=== PATIENT | female | born 1990 | race Caucasian/White ===

== ENCOUNTER 2016-08-27 05:39 | Emergency (ER) | payer MEDICAID ==
[2016-08-27] MEDS ORDERED: Sodium Chloride 0.9% 1,000 ML IV ONE (05:56)
[2016-08-27] MEDS ORDERED: Ondansetron 4 MG/2 ML SDV IVPUSH ONE (05:56)
[2016-08-27] MEDS ORDERED: HYDROmorphone 2 MG/ML SDV IVPUSH ONE (05:57)
[2016-08-27] MEDS ORDERED: Sodium Chloride 0.9% 10 ML Syringe FLUSH PRN (06:13)
[2016-08-27] MEDS ORDERED: Ranitidine 15 MG/ML Syrup ML (473 ML Bottle) PO ONE (08:13)
[2016-08-27 08:29] VITALS: BP 118/73
--- NOTE | 2016-08-29 11:26 | ER ---
DATE SEEN: 08/27/2016 TIME SEEN: The patient was seen at 0638 hours. HISTORY OF PRESENT ILLNESS: The patient states she has vomited 12 times since yesterday, including this morning. She has had difficulty eating. She is approximately 14 weeks' . Last menstrual period approximately May 21, 2016. She denies fever, diarrhea, or hematemesis, or eating fatty foods. She denies problems with her gallbladder. No previous gallbladder surgery. Even drinking water "causes upset stomach". She did not eat yesterday. She worked yesterday. She has now come to the ED after she has finished work. She is quite sleepy. When she talks, she talks very quietly. This is her 7th . See my previous note regarding her pregnancies. I believe there are several fathers involved in multiple pregnancies. No history of autoimmune disease, duodenal ulcer, or Helicobacter pylori. She is not taking any medicine for upset stomach. She is a 7, para 6-0-0-6, one set of twins. On multiple occasions, she was seen by myself on 08/09/2016 and was seen by Dr. Ceja on 08/23/2016 for chest pain and also on 08/07/2016 for chest pain. No chest wall trauma. Diagnosed with periscapular pain on 08/07/2016 and treated with ketorolac IM. History of falls. She is known to have polysubstance abuse, depression, and anxiety. On 08/10/2016, I saw her and documented intercostal myalgia with strain, discomfort from carrying her 21-pound baby. She was advised not to use NSAIDs during , but it is okay to use Tylenol. On 08/09/2016 and also on two prior visits with Dr. Ahuja on 08/07/2016, she did not relate she was . PAST MEDICAL HISTORY: The patient had past medical history of STDs. Other diagnosis, schizophrenia. FAMILY HISTORY: Mother had heart surgery. Another family member had lupus and one had leukemia. SOCIAL HISTORY: The patient is a nonsmoker. On 08/23/2016, the patient did not have chest wall pain. Diagnosed as having atypical chest pain and to use Tylenol as needed for pain and/or capsaicin or turmeric for discomfort. ALLERGIES: None. I asked the patient if she is taking vitamins for , she said "well my doctor knows I am , but he has not given me vitamins. " (This seems quite strange - maybe she has never informed her MD that she is pregant, or she is no compliant). PHYSICAL EXAMINATION: GENERAL: Alert woman, looks very tired. She is soft- spoken. It is very hard to hear her. HEENT: PERRLA intact. Pharynx without abnormality. NECK: She has multiple tattoos on her neck and her body. LUNGS: Clear to auscultation. HEART: S1, S2. No murmur. ABDOMEN: Soft. Enlarged gravid uterus noted. EXTREMITIES: Lower extremities without abnormality. ASSESSMENT: Possible acid peptic disease. Consulted Up-To-Date, and the drug of choice is ranitidine 150 mg b.i.d.during . Omeprazole is noted to cause hypospaydia and that was not chosen. ADDITIONAL COMMENT: Palpation of the patient's chest demonstrates sternal chondritis, left greater than right, quite extensive. She breaks out in tears. I find she is very melodramatic. With her history of drug-seeking, I am reluctant to provide any narcotics to her for her pain in her chest. Most of the pain has been in the chest, not so much in the epigastric area, but she also points to the mid epigastric area. She wanted the medicine before she left, but we do not have any ranitidine in the hospital. PLAN: Use ranitidine 1 b.i.d. 150 mg, 30 tablets given. Follow up with doctor in 7 to 10 days and discussed her need for vitamins. OTHER DIAGNOSES: Schizophrenia, drug-seeking behavior, with multiple husbands, depression and anxiety, and sternal chondritis. /[id number] MIMI/NHUNG ALMANZA
== END 2016-08-27 08:15 | disposition home or self-care (01) ==
LOC: FB.ED 05:39
DX: O21.9 Vomiting of pregnancy, unspecified (principal); F20.9 Schizophrenia, unspecified; Z76.5 Malingerer [conscious simulation]; Z91.89 Other specified personal risk factors, not elsewhere classified; F32.9 Major depressive disorder, single episode, unspecified; F41.9 Anxiety disorder, unspecified; M94.8X8 Other specified disorders of cartilage, other site
CPT/HCPCS: 36415; 80053; 80305; 81001; 81025; 82150; 84484; 85025; 96361; 96374; 99283; 99284; J2405; J7040; J7050

== ENCOUNTER 2016-09-06 13:23 | Emergency (ER) | payer MEDICAID ==
[2016-09-06 13:40] VITALS: BP 116/96
[2016-09-06] MEDS ORDERED: Ondansetron 4 MG Tab.DIS PO ONE (13:41)
[2016-09-06] MEDS ORDERED: Calcium Carbonate 250 MG/ML Susp ML PO ONE (14:34)
--- NOTE | 2016-09-08 04:11 | ER ---
DATE SEEN: 09/06/2016 ADDENDUM: Correcting the time patient seen. TIME SEEN: She was seen at 1320 hours (instead of 1305 hours). /[id number] MIMI/NHUNG
--- NOTE | 2016-09-08 05:12 | ER ---
DATE SEEN: 09/06/2016 TIME SEEN: The patient was seen at 1305 hours. HISTORY OF PRESENT ILLNESS: This 25-year-old 7, para 6-0-0-6, last menstrual period (?) approximately 15 weeks' gestation with several husbands (as I remember has 4 husbands, 2 of which are in longterm or have been in longterm) presents because she has abdominal pain with vomiting. She has been seen 4 times for chest pain and vomiting during fromt August 07 through today. Today was the fifth visit. She wants pain medicine. She has a past medical history of chemical dependency and other significant issues. No diabetes. No heart disease. No high blood pressure. She states she vomited 10 times since this morning. She does not have a tachycardia, heart rate of 79, blood pressure of 116/96, respirations 18, oxygen saturation 100%, and temperature 36.4. On the other occasions I saw her, she would cry when I would go by the room, but then the other occasions her disposition and personality would change completely, and today is no different. When more people are around the room, she cries out loudly and complains of severe abdominal pain and is lying on her side. She is attended by household care provider for her children. PHYSICAL EXAMINATION: HEENT: PERRLA intact. Pharynx without abnormality. Oral mucosa is moist. NECK: Supple. No thyromegaly. LUNGS: Clear to auscultation. HEART: S1, S2. No murmur. No irregularity. No tachycardia. ABDOMEN: She did not vomit once during the ED, but she complained of terrible pain in the epigastrium. Palpation of the chest wall is without tenderness. Mild midepigastric abdominal discomfort. The abdomen is soft. Heart rate 140s, heart tones. No tenderness of the uterus. No CVA percussion tenderness. EXTREMITIES: Lower extremities without abnormality. LABORATORY DATA: A routine urinalysis suggests abnormality in urine, consequently urine catheterization to be completed. On 10/30/2015, she had mixed marty and urine culture. No history of urinary tract infection, frequency, urgency, dysuria, other than the frequency associated with . Urine specimen today was poor collection technique, had moderate squamous epithelial cells, 40 wbc's, large leukocyte esterase, small bilirubin, and urine ketones 150. CBC: White count 12,700, PMNs 90, lymphs 8, and monocytes 2. Complete metabolic panel was negative with negative hepatic enzyme test. DIFFERENTIAL DIAGNOSIS: Hyperemesis gravidarum with ketonuria secondary to dehydration. Urine specific gravity 0.025. ASSESSMENT: 1. Midepigastric abdominal pain, rule out hiatus hernia. Rule out gastritis. 2. The patient is not responding to oral tablets of Zofran and oral ranitidine which was prescribed last week for her presumed acid peptic disease. PLAN: A trial of Zofran sublingual. She did not have any vomiting in the ED, but she has nausea and pain. Also,she ahs been prescribed Compazine if Zofran does not work, 10 mg of 10 tablets one q.4-6 hours p.r.n. nausea. I did not provide narcotics for her as it has been an issue before, chemical dependency potential is very high. She is quite melodramatic. I think her pain is real and plan is to hydrate her with normal saline flush, she will be following up with the doctor tomorrow. If the pain persists, then consideration needs to be made for consultation with Gastroenterology to possibly have endoscopy. Her goal is to gradually progressively increase her fluid intake. /[id number] MIMI/NHUNG ALMANZA
== END 2016-09-06 15:05 | disposition home or self-care (01) ==
LOC: FB.ED 13:23
DX: O99.89 Other specified diseases and conditions complicating pregnancy, childbirth and the puerperium (principal); R10.13 Epigastric pain; Z3A.15 15 weeks gestation of pregnancy
CPT/HCPCS: 36415; 80053; 80305; 81001; 85025; 87086; 99284; A9270

== ENCOUNTER 2017-02-22 06:35 | Inpatient (IN) | payer MEDICAID ==
[2017-02-22] MEDS ORDERED: Sodium Chloride 0.9% 10 ML Syringe FLUSH ONE (08:00)
[2017-02-22] MEDS ORDERED: Oxytocin/Normal Saline 10 UNIT/1,000 ML BAG IV SCH (08:45)
[2017-02-22] MEDS: Lactated Ringers 1,000 ML IV SCH ×2 (09:37→13:00)
[2017-02-22] MEDS ORDERED: fentaNYL 300 MCG in Ropivacaine 200 ML IV ONE (12:18)
[2017-02-22] MEDS ORDERED: fentaNYL 100 MCG/2 ML SDV EPIDUR ONE (12:18)
[2017-02-22] MEDS ORDERED: ePHEDrine 50 MG/ML SDV ONE (12:43)
[2017-02-22] MEDS ORDERED: Naloxone 0.4 MG/ML SDV ONE (12:43)
--- NOTE | 2017-02-22 14:00 | PCM.LDHP ---
L&D History of Present Illness - General Date of Service: 02/22/17 Admit Problem/Dx: Patient Status Order with Admit Dx/Problem 02/22/17 06:35 Admission Status [Patient Status] [ADT] Routine Admission Diagnosis/Problem Admission Diagnosis/Problem Source of Information: Patient History Limitations: Reports: No Limitations - History of Present Illness Improves with: Reports: None Worsens with: Reports: None Associated Symptoms: Reports: N - Related Data Allergies/Adverse Reactions: Allergies Allergy/AdvReac Type Severity Reaction Status Date / Time aspirin Allergy Hives Verified 02/22/17 10:38 Home Medications: Home Meds Vit #108/Iron/FA [ One Tablet] 1 tab PO DAILY 02/21/17 [History ] Past Medical History - Past Health History Medical/Surgical History: Denies Medical/Surgical History Gastrointestinal History: Reports: Cholelithiasis Other Gastrointestinal History: gallbladder Genitourinary History: Reports: STD, UTI, Recurrent [employer] History: Reports: Other OB/BYN History: Pt states she has 8 children and is currently 14 weeks Psychiatric History: Reports: Addiction, PTSD, Schizophrenia Other Psychiatric History: those checked are from prior admission, patient did not admit to these disorders - Past Surgical History Musculoskeletal Surgical History: Reports: Other (See Below) Other Musculoskeletal Surgeries/Procedures:: chronic abdominal pain, and low back pain Social & Family History - Family History Family Medical History: Noncontributory Cardiac: Reports: Other (See Below) Other Cardiac Family History: mother has heart disease as stated by patient Oncologic: Reports: Breast, Leukemia, Other (See Below) Other Oncologic Family History: Lupus - Tobacco Use Smoking Status *Q: Former Smoker Years of Tobacco use: 10 Packs/Tins Daily: 0.5 Used Tobacco, but Quit: No Month Tobacco Last Used: November 2014 Second Hand Smoke Exposure: No - Caffeine Use Caffeine Use: Reports: Soda - Recreational Drug Use Recreational Drug Use: Yes Drug Use in Last 12 Months: No Recreational Drug Type: Reports: Methamphetamine Recreational Drug Use Frequency: Not Used In Over 6 Months H&P Review of Systems - Review of Systems: Review Of Systems: ROS reveals no pertinent complaints other than HPI. L&D Exam - Exam Exam: See Below - Vital Signs Vital Signs: Last Vital Signs Temp 98.9 F 02/22/17 10:45 Pulse 72 02/22/17 09:40 Resp 20 08/24/17 09:40 BP 105/54 L 02/22/17 09:40 Pulse Ox 100 02/22/17 09:40 Weight: 63.503 kg - OB Specific Contraction Duration (sec): 30-40 Contraction Frequency (min): 1-2 Contraction Intensity: Strong - Burton Score Burton Score Cervix Position: Posterior Burton Score Consistency: Soft Burton Score Dilation: 3-4 cm Burton Score Infant's Station: -1 ,0 - Exam General: Alert, Oriented HEENT: PERRLA, Conjunctiva Clear, EACs Clear, EOMI, Hearing Intact, Mucosa Moist & [place], Nares Patent, Normal Nasal Septum, Posterior Pharynx Clear, TMs Clear Neck: Supple, Trachea Midline Lungs: Clear to Auscultation, Normal Respiratory Effort Cardiovascular: Regular Rate, Regular Rhythm GI/Abdominal Exam: Normal Bowel Sounds, Soft, Non-Tender, No Organomegaly, No Distention, No Abnormal Bruit, No Mass, Pelvis Stable Rectal Exam: Normal Exam, Normal Rectal Tone Genitourinary: Normal external exam, Normal bimanual exam, Normal speculum exam Back Exam: Normal Inspection, Full Range of Motion Extremities: Normal Inspection, Normal Range of Motion, Non-Tender, No Pedal Edema, Normal Capillary Refill Skin: Warm, Dry, Intact Neurological: Cranial Nerves Intact, Reflexes Equal Bilateral Psychiatric: Alert, Normal Affect, Normal Mood - Problem List (1) SNOMED Code(s): 93608892 ICD Code: Z34.90 - ENCNTR FOR SUPRVSN OF NORMAL , UNSP, UNSP TRIMESTER Status: Acute Current Visit: Yes Qualifiers: Weeks of gestation: 40 weeks Qualified Code(s): Z3A.40 - 40 weeks gestation of (2) Elective induction of labor planned SNOMED Code(s): 390760962 ICD Code: [id number] - Status: Acute Current Visit: Yes Problem List Initiated/Reviewed/Updated: Yes Orders Last 24hrs: Active Orders 24 hr Category Date Time Status Admission Status [Patient Status] [ADT] Routine ADT 02/22/17 06:35 Active Lactated Ringers [Ringers, Lactated] 1,000 ml Med 02/22/17 08:45 Active IV ASDIRECTED Oxytocin/Normal Saline [Pitocin in NS 10 UNITS/1,000 ML Med 02/22/17 08:45 Active ] 10 unit in 1,000 ml IV TITRATE Medication Orders Oxytocin/Sodium Chloride (Pitocin In Ns 10 Units/1,000 Ml) 10 unit in 1,000 mls @ 12 mls/hr IV TITRATE FREDERICK; 2 MUNITS/MIN PRN Reason: Protocol Last Titration: 02/22/17 11:40 Dose: 6 munits/min, 36 mls/hr Titration: 02/22/17 10:45 Dose: 4 munits/min, 24 mls/hr Admin: 02/22/17 10:12 Dose: 2 munits/min, 12 mls/hr Lactated Ringer's (Ringers, Lactated) 1,000 mls @ 125 mls/hr IV ASDIRECTED FREDERICK Last Admin: 02/22/17 13:00 Dose: 125 mls/hr Infusion: 02/22/17 13:00 Dose: 125 mls/hr Admin: 02/22/17 09:37 Dose: 125 mls/hr Assessment/Plan Comment:: Burton Score 11.Induce with Pitocin. ARM done,clear fluid.
[2017-02-22] MEDS ORDERED: ePHEDrine 50 MG/ML SDV IVPUSH PRN (14:13)
[2017-02-22] MEDS ORDERED: Ondansetron 4 MG/2 ML SDV IVPUSH PRN (14:13)
[2017-02-22] MEDS ORDERED: Naloxone 0.4 MG/ML SDV IVPUSH PRN (14:13)
[2017-02-22] MEDS ORDERED: Naloxone 0.4 MG in Sodium Chloride 0.9% 100 ML IV PRN (14:13)
[2017-02-22] MEDS ORDERED: diphenhydrAMINE 50 MG/ML SDV IVPUSH PRN (14:13)
[2017-02-22] MEDS ORDERED: Promethazine 25 MG/ML SDV IV PRN (14:13)
[2017-02-22] MEDS: Ibuprofen 600 MG Tab PO PRN ×2 (16:16→22:37)
[2017-02-22] MEDS: Acetaminophen 325 MG Tab PO PRN ×2 (18:46→23:45)
[2017-02-23] MEDS: Ibuprofen 600 MG Tab PO PRN ×2 (06:10→13:25)
[2017-02-23] MEDS: Acetaminophen 325 MG Tab PO PRN (06:11)
--- NOTE | 2017-02-23 10:00 | PCM.PNPP ---
- General Info Date of Service: 02/23/17 Subjective Update: C/o cramps on Functional Status: Reports: Tolerating Diet. Denies: Pain Controlled - Review of Systems General: Reports: No Symptoms HEENT: Reports: No Symptoms Pulmonary: Reports: No Symptoms Cardiovascular: Reports: No Symptoms Gastrointestinal: Reports: No Symptoms Genitourinary: Reports: No Symptoms Musculoskeletal: Reports: No Symptoms Skin: Reports: No Symptoms Neurological: Reports: No Symptoms Psychiatric: Reports: No Symptoms - General Info Date of Service: 02/23/17 - Patient Data Vital Signs - Most Recent: Last Vital Signs Temp 98.7 F 02/23/17 07:30 Pulse 67 02/23/17 07:30 Resp 18 02/23/17 07:30 BP 97/56 L 02/23/17 07:30 Pulse Ox 98 02/23/17 07:30 Weight - Most Recent: 63.503 kg I&O - Last 24 Hours: Intake & Output 02/22/17 02/23/17 02/23/17 22:59 06:59 14:59 Intake Total 631 Balance 631 Lab Results - Last 24 Hours: Laboratory Results - last 24 hr 02/23/17 Range/Units 06:10 WBC 10.0 (4.5-12.0) X10-3/uL RBC 4.18 (3.23-5.20) x10(6)uL Hgb 9.4 L D (11.5-15.5) g/dL Hct 29.9 L (30.0-51.3) % MCV 71.5 L (80-96) fL MCH 22.4 L (27.7-33.6) pg MCHC 31.4 L (32.2-35.4) g/dL RDW 18.8 H (11.5-15.5) % Plt Count 213 (125-369) X10(3)uL MPV 10.7 H (7.4-10.4) fL Add Manual Diff Yes Neutrophils % (Manual) 67 (46-82) % Lymphocytes % (Manual) 24 (13-37) % Monocytes % (Manual) 8 (4-12) % Eosinophils % (Manual) 1 (0-5) % Hypochromasia Few Anisocytosis Moderate H Microcytosis Moderate H Med Orders - Current: Current Medications Acetaminophen (Tylenol) 650 mg PO Q4H PRN PRN Reason: mild pain or fever Last Admin: 02/23/17 06:11 Dose: 650 mg Acetaminophen/Codeine Phosphate (Tylenol With Codeine No.3 300mg/30mg) 1 tab PO Q6H PRN PRN Reason: Breakthrough Pain Oxytocin/Sodium Chloride (Pitocin In Ns 10 Units/1,000 Ml) 10 unit in 1,000 mls @ 12 mls/hr IV TITRATE FREDERICK; 2 MUNITS/MIN PRN Reason: Protocol Last Titration: 02/22/17 11:40 Dose: 6 munits/min, 36 mls/hr Lactated Ringer's (Ringers, Lactated) 1,000 mls @ 125 mls/hr IV ASDIRECTED FREDERICK Last Admin: 02/22/17 13:00 Dose: 125 mls/hr Ibuprofen (Motrin) 600 mg PO Q4H PRN PRN Reason: Pain Last Admin: 02/23/17 06:10 Dose: 600 mg Discontinued Medications Diphenhydramine HCl (Benadryl) 25 mg IVPUSH ASDIRECTED PRN PRN Reason: PRURITUS Last Admin: 02/22/17 15:13 Dose: 25 mg Ephedrine Sulfate (Ephedrine Sulfate) Confirm Administered Dose 50 mg .ROUTE .STK-MED ONE Stop: 02/22/17 12:44 Last Admin: 02/22/17 16:17 Dose: Not Given Ephedrine Sulfate (Ephedrine Sulfate) 5 mg IVPUSH ASDIRECTED PRN PRN Reason: HYPOTENSION Naloxone HCl 0.4 mg/ Sodium (Chloride) 101 mls @ 25 mls/hr IV ASDIRECTED PRN PRN Reason: PER ORDER OF ANESTHESIA Naloxone HCl (Narcan) Confirm Administered Dose 0.4 mg .ROUTE .STK-MED ONE Stop: 02/22/17 12:44 Last Admin: 02/22/17 16:17 Dose: Not Given Naloxone HCl (Narcan) 0.1 mg IVPUSH ASDIRECTED PRN PRN Reason: RESPIRATORY STATUS Ondansetron HCl (Zofran) 4 mg IVPUSH Q6H PRN PRN Reason: NAUSEA/VOMITING Promethazine HCl (Phenergan) 6.25 - 12.5 mg IV Q4H PRN PRN Reason: NAUSEA AND VOMITING Sodium Chloride (Saline Flush) 10 ml FLUSH ONETIME ONE Stop: 02/22/17 08:01 Last Admin: 02/22/17 10:13 Dose: 10 ml - Interaction Disposition, : [place] in Room with Family Support Person: Friend - Recovery Exam Fundal Tone: Firm Fundal Level: At Umbilicus Fundal Placement: Midline Lochia Amount: Moderate Lochia Color: Rubra/Red Perineum Description: Intact, Minimal Bruising/Swelling Episiotomy/Laceration: None Bladder Status: Voiding - Exam General: Alert, Oriented HEENT: Pupils Equal Neck: Supple Lungs: Clear to Auscultation, Normal Respiratory Effort Cardiovascular: Regular Rate, Regular Rhythm GI/Abdominal Exam: Normal Bowel Sounds, Soft, Non-Tender, No Organomegaly, No Distention, No Abnormal Bruit, No Mass, Pelvis Stable Extremities: Normal Inspection, Normal Range of Motion, Non-Tender, No Pedal Edema, Normal Capillary Refill Skin: Warm, Dry, Intact Wound/Incisions: Healing Well Neurological: No New Focal Deficit Psy/Mental Status: Alert, Normal Affect, Normal Mood - Problem List & Annotations (1) SNOMED Code(s): 99789165 Code(s): Z34.90 - ENCNTR FOR SUPRVSN OF NORMAL , UNSP, UNSP TRIMESTER Status: Acute Current Visit: Yes Qualifiers: Weeks of gestation: 40 weeks Qualified Code(s): Z3A.40 - 40 weeks gestation of (2) Elective induction of labor planned SNOMED Code(s): 543598103 Code(s): GVH3398 - Status: Acute Current Visit: Yes (3) Delivery normal SNOMED Code(s): 20651368 Code(s): O80 - ENCOUNTER FOR FULL-TERM UNCOMPLICATED DELIVERY; Z37.9 - OUTCOME OF DELIVERY, UNSPECIFIED Status: Acute Current Visit: Yes - Problem List Review Problem List Initiated/Reviewed/Updated: Yes - My Orders Last 24 Hours: My Active Orders 02/22/17 13:57 Admission Status [Patient Status] [ADT] Routine 02/22/17 14:32 Communication Order [RC] PRN Up ad Ting [RC] ASDIRECTED Vital Signs [RC] PFP Acetaminophen [Tylenol] 650 mg PO Q4H PRN Ibuprofen [Motrin] 600 mg PO Q4H PRN Assess Lochia [WOMSER] Per Unit Routine Assess Uterine Involution [WOMSER] Per Unit Routine Ice Therapy [OM.PC] Per Unit Routine Perineal Care [OM.PC] Per Unit Routine Sitz Bath [OM.PC] Per Unit Routine Resuscitation Status Routine 02/23/17 09:58 Acetaminophen/Codeine [Tylenol with Codeine No.3 300MG/30MG] 1 tab PO Q6H PRN - Plan Plan:: Rotuine care. Tylenol #3 for pain. May go home later today.
[2017-02-23] MEDS: Acetaminophen/Codeine 300-30 MG Tab PO PRN ×2 (10:09→17:35)
--- NOTE | 2017-02-23 10:32 | DEL ---
DATE OF DELIVERY: 02/22/2017 DELIVERY NOTE: Normal spontaneous vaginal delivery of live male with score of 9 and 9 in KATHY position over an intact perineum. At 1424 hours, the patient had presented in this morning for induction of labor. Artificial rupture of membranes was done about 1330 hours to reveal clear fluid. She had received epidural anesthesia. After pushing for a few minutes, the baby's head appeared. Then, nuchal cord was checked and was not found. The rest of the baby was delivered and put in the maternal abdomen. There was spontaneous delivery of the placenta which was three-vessel intact. There was no laceration noted and blood loss was about 250 mL. Both the mother and baby are stable in the delivery room. We will continue with routine orders. /[id number] GILSON/NHUNG
[2017-02-23 19:08] VITALS: BP 116/69
--- NOTE | 2017-02-24 03:01 | DISCH ---
DISCHARGE DATE: 02/23/2017 REASON FOR ADMISSION: Induction of labor. DISCHARGE DIAGNOSIS: Spontaneous vaginal, vertex delivery. COMPLICATIONS: None. BRIEF HISTORY: A 26-year-old, G7, P6, presented for induction of labor post term induction by Pitocin, delivered a full-term live male , did well , and wanted to go home the next day, which is today, was discharged home on ibuprofen and Motrin as needed. Follow up in the office in 6 weeks. /[id number] GILSON/NHUNG
== END 2017-02-23 18:30 | disposition home or self-care (01) | DRG 775 ==
LOC: FB.OB 06:35 → OBSVTOIN 13:57
PROVIDERS: ADMIT Family Medicine; ATTEND Family Medicine
PROC: 10E0XZZ Delivery of Products of Conception, External Approach (ICD-10-PCS; principal; 2017-02-22)
PROC: 10907ZC Drainage of Amniotic Fluid, Therapeutic from Products of Conception, Via Natural or Artificial Opening (ICD-10-PCS; 2017-02-22)
PROC: 00HU33Z Insertion of Infusion Device into Spinal Canal, Percutaneous Approach (ICD-10-PCS; 2017-02-22)
PROC: 3E033VJ Introduction of Other Hormone into Peripheral Vein, Percutaneous Approach (ICD-10-PCS; 2017-02-22)
DX: O80 Encounter for full-term uncomplicated delivery (principal); Z3A.40 40 weeks gestation of pregnancy; Z37.0 Single live birth; Z88.6 Allergy status to analgesic agent; Z86.59 Personal history of other mental and behavioral disorders; Z87.891 Personal history of nicotine dependence
CPT/HCPCS: 36415; 85025; A9270-GY; J1200; J2590; J2795; J3010; J7050; J7120